=== PATIENT | female | born 1990 | race Caucasian/White ===

== ENCOUNTER 2018-05-02 10:49 | Emergency (ER) | payer OTHER ==
[~2018-05-02] VITALS: Ht 152.4 cm; Wt 45.4 kg
[~2018-05-02 10:49] MED LIST: DOXYCYCLINE 10100 MG PO; FLAGYL500 MG PO; HYDROCODON-ACE1 EAC7 PO; HYDROCODONE-APA1 TA1 PO; NAPROSYN375 MG PO; NOHOMEMEDICATIONS; NORCO 5-325 TA1 EACH PO; PHENERGAN50 MG RC; ULTRAM 50MG TAB50 MG PO; VISTARIL 25 MG25 M1 PO; ZOFRAN ODT4 MG PO
[2018-05-02 11:22] LABS: ABSOLUTE BASOPHILS 0.1 thou/uL (0.0-0.2); ABSOLUTE EOSINOPHILS 0.2 thou/uL (0.0-0.7); ABSOLUTE LYMPHOCYTES 2.6 thou/uL (0.8-5.3); ABSOLUTE MONOCYTES 0.8 thou/uL (0.0-1.2); ABSOLUTE NEUTROPHILS 6.6 thou/uL (1.6-8.1); BASOPHILS 0.6 %; EOSINOPHILS 2.1 %; HEMATOCRIT 42.8 % (37.0-47.0); LYMPHOCYTES 25.3 %; MCH 30.7 pg (26.0-34.0); MCHC 32.7 g/dL (28.0-37.0); MCV 93.9 fL (80.0-100.0); MONOCYTES 7.9 %; MPV 8.4 fl. (7.2-11.1); NUCLEATED RBCS 0 /100WBC; PLATELET COUNT* 247 thou/uL (150-400); POLYS 64.1 %; RBC 4.56 mil/uL (4.20-5.00); RDW-CV 15.2 % (10.5-14.5); WBC 10.4 thou/uL (4.0-11.0)
[2018-05-02 11:37] LABS: URINE BILIRUBIN NEGATIVE (Negative); URINE BLOOD NEGATIVE (Negative); URINE CLARITY CLEAR; URINE COLOR YELLOW; URINE GLUCOSE-RANDOM NEGATIVE (Negative); URINE KETONES NEGATIVE (Negative); URINE LEUKOCYTES-REFLEX NEGATIVE (Negative); URINE NITRITE-REFLEX NEGATIVE (Negative); URINE PROTEIN NEGATIVE (Negative); URINE SPECIFIC GRAVITY 1.025 (1.005-1.030); URINE UROBILINOGEN 0.2 E.U./dl (0.2-1.0)
[2018-05-02 11:58] LABS: CALCIUM 9.1 mg/dL (8.5-10.1); CREATININE 0.6 mg/dL (0.6-1.3)
[2018-05-02 12:02] LABS: ALBUMIN 4.2 g/dL (3.4-5.0); TOTAL BILIRUBIN 0.2 mg/dL (<0.1-1.0); TOTAL PROTEIN 8.1 g/dL (6.4-8.2)
[2018-05-02 13:53] VITALS: BP 123/80
== END 2018-05-02 13:57 | disposition home or self-care (01) ==
LOC: M.ERS 10:49
PROVIDERS: Nurse Practitioner Family
DX: R10.11 Right upper quadrant pain (principal); R11.10 Vomiting, unspecified

== ENCOUNTER 2021-02-08 12:25 | Emergency (ER) | payer OTHER ==
[~2021-02-08] VITALS: Ht 152.4 cm; Wt 45.4 kg
[~2021-02-08 12:25] MED LIST changes: +ZOFRAN ODT4 MG DISSOLVE
[2021-02-08 13:31] LABS: URINE BILIRUBIN NEGATIVE (Negative); URINE BLOOD NEGATIVE (Negative); URINE CLARITY CLEAR; URINE COLOR YELLOW; URINE GLUCOSE-RANDOM NEGATIVE (Negative); URINE KETONES NEGATIVE (Negative); URINE LEUKOCYTES-REFLEX NEGATIVE (Negative); URINE NITRITE-REFLEX NEGATIVE (Negative); URINE PROTEIN NEGATIVE (Negative); URINE SPECIFIC GRAVITY 1.015 (1.005-1.030); URINE UROBILINOGEN 0.2 E.U./dl (0.2-1.0)
[2021-02-08 13:39] LABS: ABSOLUTE BASOPHILS 0.1 thou/uL (0.0-0.2); ABSOLUTE EOSINOPHILS 0.3 thou/uL (0.0-0.7); ABSOLUTE LYMPHOCYTES 2.2 thou/uL (0.8-5.3); ABSOLUTE MONOCYTES 0.7 thou/uL (0.0-1.2); ABSOLUTE NEUTROPHILS 4.9 thou/uL (1.6-8.1); BASOPHILS 0.9 %; EOSINOPHILS 3.1 %; HEMATOCRIT 39.8 % (37.0-47.0); HEMOGLOBIN 13.4 gm/dL (12.0-15.0); LYMPHOCYTES 26.9 %; MCH 32.2 pg (26.0-34.0); MCHC 33.6 g/dL (28.0-37.0); MCV 95.8 fL (80.0-100.0); MONOCYTES 8.1 %; MPV 7.7 fl. (7.2-11.1); NUCLEATED RBCS 0 /100WBC; PLATELET COUNT* 231 thou/uL (150-400); RBC 4.15 mil/uL (4.20-5.00); WBC 8.1 thou/uL (4.0-11.0)
[2021-02-08 13:47] LABS: CREATININE 0.7 mg/dL (0.6-1.3); POTASSIUM 3.6 mmol/L (3.5-5.1)
[2021-02-08 13:52] LABS: ALBUMIN 4.4 g/dL (3.4-5.0); TOTAL BILIRUBIN 0.3 mg/dL (<0.1-1.0); TOTAL PROTEIN 7.8 g/dL (6.4-8.2)
[2021-02-08] MEDS ORDERED: IBUPROFEN 600600 M1 PO (15:19)
[2021-02-08] MEDS ORDERED: ZANAFLEX4 MG PO (15:19)
[2021-02-08 15:45] VITALS: BP 111/70
--- NOTE | 2021-02-09 14:13 | EKG ---
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
== END 2021-02-08 15:46 | disposition home or self-care (01) ==
LOC: M.ERS 12:25
PROVIDERS: Nurse Practitioner Family
DX: R07.89 Other chest pain (principal); R10.11 Right upper quadrant pain; R10.13 Epigastric pain; R07.81 Pleurodynia; M41.9 Scoliosis, unspecified; Z90.49 Acquired absence of other specified parts of digestive tract

== ENCOUNTER 2021-06-06 06:32 | Emergency (ER) | payer OTHER ==
[~2021-06-06] VITALS: Ht 152.4 cm; Wt 68.0 kg
[~2021-06-06 06:32] MED LIST changes: +IBUPROFEN 600600 M1 PO; +ZANAFLEX4 MG PO
[2021-06-06 07:11] LABS: ABSOLUTE BASOPHILS 0.1 thou/uL (0.0-0.2); ABSOLUTE EOSINOPHILS 0.3 thou/uL (0.0-0.7); ABSOLUTE LYMPHOCYTES 1.8 thou/uL (0.8-5.3); ABSOLUTE MONOCYTES 0.9 thou/uL (0.0-1.2); ABSOLUTE NEUTROPHILS 13.8 thou/uL (1.6-8.1); BASOPHILS 0.8 %; EOSINOPHILS 1.9 %; HEMATOCRIT 37.2 % (37.0-47.0); HEMOGLOBIN 12.2 gm/dL (12.0-15.0); LYMPHOCYTES 10.5 %; MCH 31.8 pg (26.0-34.0); MCHC 32.8 g/dL (28.0-37.0); MONOCYTES 5.5 %; MPV 8.1 fl. (7.2-11.1); NUCLEATED RBCS 0 /100WBC; PLATELET COUNT* 244 thou/uL (150-400); POLYS 81.3 %; RBC 3.83 mil/uL (4.20-5.00); RDW-CV 13.4 % (10.5-14.5)
[2021-06-06 07:31] LABS: CALCIUM 8.4 mg/dL (8.5-10.1); CREATININE 0.6 mg/dL (0.6-1.3); POTASSIUM 3.8 mmol/L (3.5-5.1)
[2021-06-06 07:36] LABS: ALBUMIN 3.4 g/dL (3.4-5.0); TOTAL BILIRUBIN 0.1 mg/dL (<0.1-1.0); TOTAL PROTEIN 7.3 g/dL (6.4-8.2)
[2021-06-06 08:50] VITALS: BP 112/72
== END 2021-06-06 08:50 | disposition short-term general hospital (02) ==
LOC: M.ERS 06:32
PROVIDERS: Emergency Medicine
DX: O03.4 Incomplete spontaneous abortion without complication (principal); Z90.49 Acquired absence of other specified parts of digestive tract